=== PATIENT | female | born 1950 | race Caucasian/White ===

== ENCOUNTER → 2016-10-20 | Outpatient (CLI) | payer BC ==
[~2016-10-20] MED LIST: ACID1TAB PO; ANTI14DR4 LEFT EAR; Amlodipine Besylate PO; CEFD300C3 PO; CITA20TA4 PO; DILT120C57 PO; HYDR-3714 PO; IBUP-30 PO; MECL-106 PO; NEBI5TAB8 PO; ONDA-42 SL; PNT40TEC PO; POTA20TA15 PO; VALS320T11 PO
--- NOTE | 2016-10-23 17:46 | Diagnostic Imaging Report ---
Bilateral screening mammogram. The current study was also evaluated with a Computer Aided Detection (CAD) system. INDICATION: Screening. No current complaints stated on the questionnaire. COMPARISON: 09/24/15. FINDINGS: The breasts are composed of scattered fibroglandular densities. There are scattered bilateral benign-appearing calcifications. Allowing for technique and positional differences, no suspicious change is seen. IMPRESSION: No significant change. ACR BI-RADS Category 2: Benign findings. Result letter will be mailed to the patient. Note: At least 10% of breast cancer is not imaged by mammography. Dictated by: Dictated on workstation # [id number]
== END ==
LOC: RAD 13:08
PROVIDERS: ATTEND Internal Medicine
DX: Z12.31 Encounter for screening mammogram for malignant neoplasm of breast (principal)
CPT/HCPCS: 77067

== ENCOUNTER → 2017-12-07 | Outpatient (CLI) | payer MEDICARE, OTHER ==
--- NOTE | 2017-12-07 19:13 | Diagnostic Imaging Report ---
INDICATION: Routine screening. Comparison is made with prior exam from 10/20/2016 and 09/24/2015. 2-D and 3-D bilateral screening mammography was performed with CAD. The current study was also evaluated with a Computer Aided Detection (CAD) system. FINDINGS: Scattered fibroglandular densities are identified bilaterally. There are scattered benign-appearing calcifications bilaterally. No mass or malignant-appearing microcalcifications are seen. The axillae are unremarkable. IMPRESSION: No mammographic features suspicious for malignancy are identified. ACR BI-RADS Category 2: Benign findings. Result letter will be mailed to the patient. Note: At least 10% of breast cancer is not imaged by mammography. Dictated by: Dictated on workstation # [id number]
== END ==
LOC: RAD 13:57
PROVIDERS: ATTEND Internal Medicine
DX: Z12.31 Encounter for screening mammogram for malignant neoplasm of breast (principal)
CPT/HCPCS: 77067

== ENCOUNTER → 2019-01-03 | Outpatient (CLI) | payer MEDICARE, OTHER ==
--- NOTE | 2019-01-03 15:36 | Diagnostic Imaging Report ---
INDICATION: Routine screening. COMPARISON: 12/07/2017 and 10/20/2016. TECHNIQUE: 2D and 3D bilateral screening mammography was performed with CAD. FINDINGS: Scattered fibroglandular densities are identified bilaterally. Benign calcifications are again noted in both breasts. No mass or malignant appearing microcalcifications are seen. The axillae are unremarkable. IMPRESSION: No mammographic features suspicious for malignancy are identified. ACR BI-RADS Category 2: Benign findings. Result letter will be mailed to the patient. Note: At least 10% of breast cancer is not imaged by mammography. Dictated by: Dictated on workstation # [id number]
== END ==
LOC: RAD 13:53
PROVIDERS: ATTEND Internal Medicine
DX: Z12.31 Encounter for screening mammogram for malignant neoplasm of breast (principal)
CPT/HCPCS: 77067

== ENCOUNTER → 2020-05-07 | Outpatient (CLI) | payer MEDICARE, OTHER ==
--- NOTE | 2020-05-08 09:13 | Diagnostic Imaging Report ---
INDICATION: Routine screening. COMPARISON: 01/03/2019 and 12/07/2017. TECHNIQUE: 2D and 3D bilateral screening mammography was performed with CAD. FINDINGS: Scattered fibroglandular densities are identified bilaterally. There is a density in the central right breast at the nipple line, best seen on the CC view. This may be inferiorly located on the MLO view. Additional views are recommended. The left breast is unremarkable. There are scattered benign calcifications. No malignant appearing microcalcifications are seen. The axillae are unremarkable. IMPRESSION: Right breast density. Additional views are recommended for further evaluation. ACR BI-RADS Category 0: Incomplete. (Needs additional imaging evaluation). Result letter will be mailed to the patient. Note: At least 10% of breast cancer is not imaged by mammography. Dictated by: Dictated on workstation # [id number]
== END ==
LOC: RAD 12:45
PROVIDERS: ATTEND Internal Medicine
DX: Z12.31 Encounter for screening mammogram for malignant neoplasm of breast (principal); R92.2 Inconclusive mammogram
CPT/HCPCS: 77063; 77067

== ENCOUNTER → 2020-05-17 | Outpatient (CLI) | payer MEDICARE, OTHER ==
--- NOTE | 2020-05-17 13:19 | Diagnostic Imaging Report ---
INDICATION: Right breast density. Patient presents for additional views. COMPARISON: Correlation is made with the recent screening study from 05/07/2020. TECHNIQUE: Unilateral right 2D and 3D diagnostic mammography was performed. This included spot compression CC, rolled CC, and conventional 90 degree lateral views. The current study was evaluated with a Computer Aided Detection (CAD) system. FINDINGS: Additional views show a persistent small density in the nipple line on the CC view which appears to be inferiorly located on the tomographic images. This is not definitely seen on the ML view. This could represent fibroglandular tissue. No suspicious calcifications are seen. IMPRESSION: Persistent tiny density in the inferior central right breast, perhaps fibronodular tissue. Even so, sonographic interrogation is recommended and will be performed today. ACR BI-RADS Category 0: Incomplete. (Needs additional imaging evaluation). Result letter will be mailed to the patient. Note: At least 10% of breast cancer is not imaged by mammography. Dictated by: Dictated on workstation # [id number]
--- NOTE | 2020-05-17 14:01 | Diagnostic Imaging Report ---
INDICATION: Right breast density. CORRELATION is made with diagnostic mammogram earlier the same day and screening mammogram from 05/07/2020. Sonographic interrogation of the lower right breast was performed. There is a tiny hypoechoic nodule at the 5:00 location, 6 cm from the nipple measuring 5 mm x 3 mm x 5 mm. No internal vascularity is present. No posterior acoustic shadowing is present. This has fairly benign features. This likely accounts for the mammographic density. IMPRESSION: BI-RADS Category 3. A tiny hypoechoic nodule at the 5:00 location, right breast, likely accounting for the mammographic density. A follow-up right mammogram and a right breast ultrasound in 6 months are recommended to show continued stability. Consideration could be given to ultrasound-guided biopsy, as well. Dictated by: Dictated on workstation # [id number]
== END ==
LOC: RAD 12:45
PROVIDERS: ATTEND Internal Medicine
DX: N63.14 Unspecified lump in the right breast, lower inner quadrant (principal); R92.2 Inconclusive mammogram
CPT/HCPCS: 76642; 77065; G0279

== ENCOUNTER → 2020-11-08 | Outpatient (CLI) | payer MEDICARE, OTHER ==
--- NOTE | 2020-11-08 17:31 | Diagnostic Imaging Report ---
INDICATION: Six-month followup right breast density. Correlation is made prior mammogram 05/07/2020. Unilateral right 2-D and 3-D diagnostic mammography was performed. Scattered fibroglandular densities right breast were noted. The density noted in the central right breast best seen on the CC view on prior study is much less prominent on today's study. No new mass is identified. No malignant appearing microcalcifications are seen. There are scattered benign calculus locations. Right axilla is unremarkable. IMPRESSION: BI-RADS 0 Previously noted density is much less prominent on today's study. Even so, sonographic interrogation of previously seen lesion by ultrasound is recommended and will be performed today. ACR BI-RADS Category 0: Incomplete. (Needs additional imaging evaluation). Result letter will be mailed to the patient. Note: At least 10% of breast cancer is not imaged by mammography. Dictated by: Dictated on workstation # [id number]
--- NOTE | 2020-11-08 17:32 | Diagnostic Imaging Report ---
INDICATION: Six-month followup right breast lesion. Correlation is made with prior ultrasound from 05/17/2020 and diagnostic mammogram earlier same day. Sonographic interrogation of the 5 o'clock location of the right breast was performed. Previously noted tiny hypoechoic nodule is unchanged at 5 mm x 3 mm x 5 mm. No new mass is seen. IMPRESSION: BI-RADS Category 3 Stable hypoechoic nodule 5 o'clock location right breast 6 cm from the nipple. Additional six-month followup is recommended to show continued stability. ACR BI-RADS Category 3: Probably benign findings. Result letter will be mailed to the patient. Note: At least 10% of breast cancer is not imaged by mammography. Dictated by: Dictated on workstation # [id number]
== END ==
LOC: RAD 13:38
PROVIDERS: ATTEND Internal Medicine
DX: N63.14 Unspecified lump in the right breast, lower inner quadrant (principal)
CPT/HCPCS: 76642; 77065; G0279

== ENCOUNTER 2021-02-02 21:21 | Emergency (ER) | payer MEDICARE, OTHER ==
[~2021-02-02] VITALS: Ht 160 cm; Wt 108.8 kg
[2021-02-02] MEDS ORDERED: ACETAMINOPHEN 500 MG TAB (TYLENOL) PO ONE (21:45)
--- NOTE | 2021-02-02 22:28 | ED Lower Extremity ---
General Chief Complaint: Lower Extremity Stated Complaint: L KNEE PAIN Nursing Triage Note: C/O TWISTING LEFT KNEE AND HAVING PAIN WHEN STANDING OR WALKING Source: patient Exam Limitations: no limitations History of Present Illness Date Seen by Provider: Feb 02, 2021 Time Seen by Provider: 21:30 Initial Comments 71-year-old female with past medical history of osteoarthritis in the lower extremities coming in due to left knee pain that started acutely after she stood up and twisted her left knee a couple hours prior to arrival. She has left medial knee pain that is sharp, worse with movement, but otherwise constant. It is better with rest. She took ibuprofen for it which did help the pain. She states it feels similar to the pain she had prior to needing a scope in that knee previously. Denies any fever or swelling in the knee. Allergies and Home Medications Allergies Coded Allergies: JUAN MIGUELANo Known Allergies (Verified Allergy, Unknown, 11/25/05) Home Medications Acidophilus/Bulgaricus 1 Tab.chew Tab.chew, 1 TAB.CHEW PO AC Prescribed by: FORREST RATLIFF on 07/16/14 1010 Citalopram Hydrobromide 20 Mg Tab, 20 MG PO DAILY Prescribed by: FORREST RATLIFF on 07/16/14 1010 Hydrocodone Bit/Acetaminophen 1 Tab Tablet, 1-2 TAB PO Q6H PRN for PAIN, (Reported) Ibuprofen 200 Mg Tablet, 600 MG PO BID PRN for PAIN, (Reported) Meclizine Hcl 25 Mg Tab, 25 MG PO Q6H PRN for DIZZINESS, (Reported) Nebivolol Hcl 5 Mg Tablet, 5 MG PO DAILY, (Reported) Pantoprazole Sod 40 Mg Tab, 40 MG PO DAILY@0700 Prescribed by: FORREST RATLIFF on 07/16/14 1010 Valsartan 320 Mg Tablet, 320 MG PO DAILY, (Reported) [Amlodipine Besylate] 5 MG TAB, 10 MG PO DAILY Prescribed by: FORREST RATLIFF on 07/16/14 1010 Patient Home Medication List Home Medication List Reviewed: Yes Review of Systems Constitutional: No fever EENTM: No blurred vision Respiratory: No cough, No short of breath Cardiovascular: No chest pain Gastrointestinal: No abdominal pain, No diarrhea, No nausea, No vomiting Musculoskeletal: joint pain Skin: No rash Psychiatric/Neurological: Denies Anxiety, Denies Depressed All Other Systems Reviewed Negative Unless Noted: Yes Past Ikfkmcp-Nanlsp-Quxfmy Hx Patient Social History Tobacco Use?: No Use of E-Cig and/or Vaping dev: No Substance use?: No Alcohol Use?: Yes Alcohol type: Hard Liquor Alcohol Frequency: Rarely Pt feels they are or have been: No Immunizations Up To Date Tetanus Booster (TDap): More than 5yrs Past Medical History Abdominal, Hysterectomy Reproductive Disorders: No Female Reproductive Disorders: Denies HIV/AIDS: No Irritable Bowel Arthritis Loss of Vision: Denies Hearing Impairment: Denies Eczema Family Medical History Asthma G8 BROTHER FH: lung cancer 19 FATHER, , Age:49 FHx: heart disease 19 MOTHER, G8 BROTHER G8 SISTER Myocardial infarction 19 FATHER, , Age:49 (X2) G8 SISTER Physical Exam Vital Signs Vital Signs - First Documented 02/02/21 21:35 Temp 36.9 Pulse 68 Resp 18 B/P (MAP) 203/95 (131) Pulse Ox 94 O2 Delivery Room Air Capillary Refill : Less Than 3 Seconds Height, Weight, BMI Height: 5'3.00" Weight: 218lbs. 5.0oz. 98.149220mu; 42.00 BMI Method:Stated General Appearance: WD/WN, no apparent distress HEENT: PERRL/EOMI, normal ENT inspection, pharynx normal Neck: non-tender, full range of motion Cardiovascular: regular rate, rhythm, no edema, no murmur Respiratory: chest non-tender, lungs clear, normal breath sounds, no respiratory distress, no accessory muscle use Gastrointestinal: normal bowel sounds, non tender, soft; No distended, No guarding Back: normal inspection Knees: right knee non-tender; bilateral knee normal inspection; right knee normal range of motion; left knee bone tenderness, left knee pain, left knee other (Left knee tender along the medial joint line, normal ligamentous testing, positive Breana, full range of motion passively) Neurologic/Tendon: normal sensation, normal motor functions Neurologic/Psychiatric: no motor/sensory deficits, alert, normal mood/affect Skin: normal color, warm/dry Lymphatic: no adenopathy Progress/Results/Core Measures Results/Orders My Orders Orders - LC DUGAN MD Acetaminophen Tablet (Tylenol Tablet) (02/02/21 21:45) Knee, Left, 3 Views (02/02/21 21:44) Medications Given in ED Current Medications Medications Dose Ordered Sig/Odilia Route Start Time Stop Time Status Last Admin Dose Admin Acetaminophen 1,000 mg ONCE ONCE PO 02/02/21 21:45 02/02/21 21:46 DC 02/02/21 22:15 1,000 MG Vital Signs/I&O 02/02/21 21:35 Temp 36.9 Pulse 68 Resp 18 B/P (MAP) 203/95 (131) Pulse Ox 94 O2 Delivery Room Air Blood Pressure Mean: 131 Progress Progress Note : Progress Note 71-year-old female with above history coming in due to left knee pain after standing and twisting it. ABCs were intact and vitals are stable on presentation. Physical exam with left knee medial joint line tenderness without any effusion. Low suspicion for a septic joint given no effusion or fever and there is no redness over it. Low suspicion for DVT over the extremity given there is no swelling and it is equal to the other side. Given she is tender over the medial joint line my top thought is that it would be osteoarthritis related or meniscal related. X-ray ordered to up assess for any signs of fracture which I think is unlikely. She was given Tylenol for pain. X-ray knee consistent with osteoarthritis no fracture on my interpretation. I believe she is stable for discharge with orthopedic follow-up. She was sent home with strict return precautions. Diagnostic Imaging Diagonstic Imaging: Xray Plain Films/CT/US/NM/MRI: knee Comments [facility] [place], [place] NAME: VIRGILIO WEST MED REC#: [id number] PT STATUS: REG ER : 1950 PHYSICIAN: LC DUGAN MD ADMIT DATE: 02/02/21/ER Draft Date of Exam:02/02/21 KNEE, LEFT, 3 VIEWS INDICATION: Left knee pain AP, oblique, and lateral views of the left knee are obtained. No fracture or acute bony abnormality seen. There is medial joint space narrowing with osteophyte formation and milder lateral joint space osteophyte formation. There is prominent patellofemoral spurring. There is a question of loose body in the superior joint space. IMPRESSION: Chronic changes in the left knee with no acute appearing abnormality. Dictated on workstation # [id number] Dict: 02/02/21 2313 Trans: 02/02/21 2318 [facility] [id number] Interpreted by: LAILA REED MD Electronically signed by: Departure Impression Primary Impression: Osteoarthritis Qualified Codes: M17.12 - Unilateral primary osteoarthritis, left knee Additional Impressions: Degenerative tear of meniscus Qualified Codes: M23.307 - Other meniscus derangements, unspecified meniscus, left knee Left knee pain Qualified Codes: M25.562 - Pain in left knee Disposition: 01 HOME, SELF-CARE Condition: Stable Departure-Patient Inst. Decision time for Depature: 23:34 Referrals: FORREST RATLIFF DO (PCP/Family) Primary Care Physician Patient Instructions: Knee Pain ED, Meniscal Tear (DC) Add. Discharge Instructions: You were seen in the emergency department for left knee pain. On x-ray you have some degenerative changes consistent with arthritis. I believe you have but what is called a degenerative meniscal tear which typically improves with physical therapy and ibuprofen or Tylenol. If you have any other concerns such as fever, swelling of her knee that is worsening, please come back to the emergency department. Otherwise please follow-up with an orthopedic physician for other treatment options. All discharge instructions reviewed with patient and/or family. Voiced understanding. LC DUGAN MD Feb 02, 2021 22:28
--- NOTE | 2021-02-02 23:18 | Diagnostic Imaging Report ---
INDICATION: Left knee pain AP, oblique, and lateral views of the left knee are obtained. No fracture or acute bony abnormality seen. There is medial joint space narrowing with osteophyte formation and milder lateral joint space osteophyte formation. There is prominent patellofemoral spurring. There is a question of loose body in the superior joint space. IMPRESSION: Chronic changes in the left knee with no acute appearing abnormality. Dictated by: Dictated on workstation # [id number]
[2021-02-02 23:43] VITALS: BP 187/89
== END 2021-02-02 23:43 | disposition home or self-care (01) ==
LOC: EDUNIT# 21:21 → ER 21:23
DX: M17.12 Unilateral primary osteoarthritis, left knee (principal); M23.307 Other meniscus derangements, unspecified meniscus, left knee
CPT/HCPCS: 73562

== ENCOUNTER → 2021-05-15 | Outpatient (CLI) | payer MEDICARE, OTHER ==
--- NOTE | 2021-05-15 17:22 | Diagnostic Imaging Report ---
INDICATION: Six-month follow-up of right breast nodule. EXAMINATION: Sonographic interrogation of the right breast was performed. COMPARISON: Correlation is made with diagnostic mammogram from earlier the same day and right breast ultrasound from 11/08/2020. FINDINGS: Tiny hypoechoic nodule at the 5:00 location of the right breast, 6 cm from the nipple, is again noted measuring 5 mm x 5 mm x 3 mm. This is stable when compared with prior examination of six months earlier. No new abnormality is detected. IMPRESSION: Stable hypoechoic nodule in the 5:00 location right breast, 6 cm from the nipple. This now shows one year of stability. Six-month follow-up mammogram and right breast ultrasound is recommended show continued stability. ACR BI-RADS Category 3: Probably benign findings. Result letter will be mailed to the patient. Note: At least 10% of breast cancer is not imaged by mammography. Dictated by: Dictated on workstation # [id number]
--- NOTE | 2021-05-15 17:26 | Diagnostic Imaging Report ---
INDICATION: Right breast nodule. Patient presents for six-month follow-up. COMPARISON: Correlation is made with prior ultrasound from 11/08/2020 as well as 05/07/2020 and 01/03/2019. EXAMINATION: 2D and 3D bilateral diagnostic mammography was performed with CAD. The current study was also evaluated with a Computer Aided Detection (CAD) system. FINDINGS: Both breasts remain heterogeneously dense, limiting the sensitivity of mammography. The previously noted small nodule in the central slightly medial right breast is not well-seen on today's study. No new mass is detected. No malignant-appearing microcalcifications are seen. There are benign calcifications present. Axillae are unremarkable. IMPRESSION: Stable bilateral mammograms. Follow-up right breast ultrasound to further evaluate previously noted nodule at the 5:00 location is recommended and will be performed today. ACR BI-RADS Category 0: Incomplete. (Needs additional imaging evaluation). Result letter will be mailed to the patient. Note: At least 10% of breast cancer is not imaged by mammography. Dictated by: Dictated on workstation # [id number]
== END ==
LOC: RAD 14:22
PROVIDERS: ATTEND Internal Medicine
DX: N63.14 Unspecified lump in the right breast, lower inner quadrant (principal)
CPT/HCPCS: 76642; 77066; G0279; 77062

== ENCOUNTER → 2021-11-21 | Outpatient (CLI) | payer MEDICARE, OTHER ==
--- NOTE | 2021-11-21 14:21 | Diagnostic Imaging Report ---
INDICATION: Six-month follow-up right breast density. CORRELATION is made with prior mammograms 05/15/2021, 11/08/2020 and 05/07/2020. Unilateral right 2-D and 3-D diagnostic mammography was performed with CAD. Scattered fibroglandular densities are identified in the right breast. The previously noted density is not well-seen on today's study. No mass is detected. There are benign calcifications in the right breast. No malignant-appearing microcalcifications are seen. Right axilla is unremarkable. IMPRESSION: BI-RADS Category 0 No mammographic features suspicious for malignancy are identified. Even so, sonographic evaluation is recommended and will be performed today. ACR BI-RADS Category 0: Incomplete. (Needs additional imaging evaluation). Result letter will be mailed to the patient. Note: At least 10% of breast cancer is not imaged by mammography. Dictated by: Dictated on workstation # [id number]
--- NOTE | 2021-11-21 16:16 | Diagnostic Imaging Report ---
INDICATION: Six-month follow-up of right breast density. CORRELATION is made with diagnostic mammogram earlier the same day and prior right breast ultrasound from 05/15/2021. Sonographic interrogation at the 5:00 location right breast was performed. Tiny hypoechoic nodule is again noted measuring 5 mm x 5 mm x 3 mm, similar to prior exam. No posterior acoustic shadowing is seen. No other masses are detected. IMPRESSION: BI-RADS Category 3 Stable subcentimeter nodule 5:00 location right breast, 6 cm from the nipple. This now shows 18 months of stability. One additional six-month follow-up is recommended to show continued stability. ACR BI-RADS Category 3: Probably benign findings. Result letter will be mailed to the patient. Note: At least 10% of breast cancer is not imaged by mammography. Dictated by: Dictated on workstation # [id number]
== END ==
LOC: RAD 13:28
PROVIDERS: ATTEND Internal Medicine
DX: N63.14 Unspecified lump in the right breast, lower inner quadrant (principal)
CPT/HCPCS: 76642; 77065; G0279

== ENCOUNTER 2021-12-19 13:14 | Outpatient (CLI) | payer MEDICARE, OTHER | END 2021-12-19 13:35 | LOC: SLEEP 13:14 | PROVIDERS: ATTEND Otolaryngology Otolaryngology/Facial Plastic Surgery | DX: G47.33 Obstructive sleep apnea (adult) (pediatric) (principal) | CPT/HCPCS: G0399 ==